=== PATIENT | male | born 1960 | race Caucasian/White ===

== ENCOUNTER 2021-10-14 13:42 | Emergency (ER) | payer OTHER, SELFPAY ==
[2021-10-14 13:42] VITALS: BP 150/105; PULSE 93; RESP 16; TEMP 36.4; O2SAT 96; BMI 39.4
--- NOTE | 2021-10-14 16:13 | CT_ITS ---
STUDY: CT ABDOMEN AND PELVIS WITH CONTRAST REASON FOR EXAM: Male, 60 years old. Abd pain RADIATION DOSAGE (If Supplied By Facility): CTDIvol = ( 23.96 ) mGy, DLP = ( 1935.99 ) mGycm TECHNIQUE: Transaxial images were obtained from the dome of the diaphragm to the symphysis pubis without oral contrast. IV 100mL Isovue-300 was administered. Sagittal and coronal images were reconstructed. Individualized dose optimization techniques were used for this CT. COMPARISON: 08/17/12. FINDINGS: The visualized lung bases are unremarkable. The visualized portions of the heart are within normal limits. Multiple liver cysts. Normal gallbladder and extrahepatic biliary system. Normal spleen. Normal pancreas. Normal bilateral adrenal glands. Normal right kidney. Normal left kidney. Normal visualized stomach. Normal small intestine. There is questionable wall thickening versus underdistention proximal colon. There is non-visualization of the appendix. Normal abdominal aorta. Normal inferior vena cava. Normal retroperitoneum. Normal urinary bladder. There are prostatic calcifications. Large fat-containing ventral hernia with some associated inflammation/fluid. Hernia neck measures 3.7 cm. Normal osseous structures. CT/Abdomen/Pelvis W IV Cont ONLY IMPRESSION: Large fat-containing ventral hernia. Correlate with physical exam to exclude incarceration. Cecal wall thickening versus underdistention may indicate colitis in the appropriate clinical setting. Electronically Signed: Jeff Olmos MD at 18:19 EDT ,
--- NOTE | 2021-10-14 16:15 | ED.VIS.GI ---
HPI HPI - GI History of Present Illness Chief Complaint: Abd Pain Informant: patient and spouse/S.O. Abdominal Pain/Flank Pain Onset: Days Context: Gradual Onset Timing: Intermittent Quality: Aching Location: Diffuse Current Severity: Gone Maximum Severity: Mild Worsened by: Nothing Relieved by: Nothing Nausea/Vomiting/Emesis GI Symptom: Negative for Nausea and Vomiting Diarrhea/Melena/Hematochezia GI Symptom: Positive for Diarrhea; Negative for Melena and Hematochezia Onset: Days Stool Quality: Positive for Loose and Watery Associated Symptoms Associated Symptoms: Negative for Dysuria, Frequency, Hematuria and Urgency Narrative Narrative: 60-year-old male history of BPH. He uses ibuprofen for pain and Flomax for his BPH. States since Tuesday has had some diffuse abdominal discomfort. He has a known umbilical hernia that he was instructed he needs to lose weight before they were repaired. He and his drink well water at home. She has had no symptoms. He had significant diarrhea Tuesday and Tuesday but seems to be resolving is only had several episodes a day the last couple days. Is never had C. difficile. He has been on no recent antibiotics. He denies any fever. He states in the past he had some type of colonoscopy done and he did several polypectomies. He was placed on antibiotic for some condition he cannot remember specifically what it was but he said he felt better has been fine since then. Prior similar symptoms: No Recent Illness/Hospitalization: No PFSH PFSH Medical History Umbilical hernia Home Medications tamsulosin 0.4 mg PO DAILY 10/14/21 [History Last Taken Unknown] Allergy/AdvReac Type Severity Reaction Status Date / Time No Known Allergies Allergy Verified 10/14/21 13:44 Surgical History History of bilateral knee replacement Social History Smoking Status: Never smoker ROS ROS ED ROS Narrative Abdominal pain and diarrhea. Review of Systems ROS Unobtainable: Denies due to encephalopathy Constitutional Constitutional ED: Denies fever(s) ENT ENT ED: Denies ear pain Cardiovascular Cardiovascular: Denies chest pain Respiratory/Chest Respiratory/Chest: Denies dyspnea Gastrointestinal Gastrointestinal: Reports abdominal pain and diarrhea; Denies constipation, melena, nausea or vomiting Genitourinary Genitourinary ED: Denies dysuria or hematuria Musculoskeletal Musculoskeletal: Denies myalgias Integumentary Denies rash Neurologic Neurologic: Denies headache(s) Psychiatric Psychiatric: Denies depression Endocrine Endocrinology: Denies polyuria Hematologic/Lymphatic Hematologic/Lymphatic: Denies easy bruising Allergic/Immunologic Allergic/Immunologic ED: Denies urticaria EXAM Physical Exam Narrative Exam Narrative: 6-year-old male no acute distress vital signs stable afebrile. HEENT exam unremarkable. Neck nontender. Lungs clear to auscultation bilaterally. Heart regular rate and rhythm no murmur rate about 90. Abdomen soft nondistended normal bowel sounds no peritoneal signs. No significant tenderness. Is a known umbilical hernia. It easily reduces. It is nontender. There is no signs of obstruction. He is moving all 4 extremities. Back nontender. Const Vital Signs: 10/14/21 13:42 10/14/21 16:44 10/14/21 18:14 Temperature 97.6 F L Temperature Source Temporal Pulse Rate 93 72 83 Respiratory Rate 16 19 H 15 Blood Pressure 150/105 H 132/89 H 139/76 H Blood Pressure Mean 120 103 97 Pulse Ox 96 97 98 Oxygen Delivery Method Room Air Room Air Room Air Positive well nourished, well developed and obese; Negative for cachectic, contractures or unkempt General Appearance ED: well developed and NAD; Negative for unkempt, cachectic, contractures or pallor Nutritional Appearance: obese; Negative for cachectic HEENT Reports moist mucous membranes normocephalic and atraumatic; Negative for trauma or tenderness Eyes PERRL and EOMs intact bilaterally General Eye ED: Negative for pale conjunctiva or scleral icterus Neck no lymphadenopathy, supple and no JVD General: Negative for tenderness Resp normal respiratory effort and clear to auscultation bilaterally Auscultation: Negative for rales, rhonchi or wheezes Cardio regular rate, regular rhythm, S1 normal heart sound, S2 normal heart sound and no murmurs GI non-tender, non-distended and no masses GI Narrative: Umbilical hernia. Nontender. Easily reduces. Auscultation: normoactive bowel sounds Palpation: soft; Negative for tender, guarding or rigid Back/Spine no CVA tenderness General Back: Negative for CVA tenderness Cervical Spine: Negative for cervical spine tenderness Extremity full ROM General Extremety ED: Negative for edema or tenderness General Extremity: Negative for edema Neuro moves all extremities Sensorium / Orientation: alert, oriented to person, oriented to place, oriented to time and stuporous; Negative for orientation impaired, confused or lethargic Motor Exam: strength 5/5 throughout Psych mental status grossly normal and thought process normal Appearance: Negative for unkempt Skin no wounds General Skin Exam: Negative for jaundice or pallor Lesions: no lesions Rashes: no rashes MDM MDM MDM Narrative Medical decision making narrative: 60-year-old with abdominal pain and diarrhea. Screening labs, CAT scan and C. difficile being obtained if he has a bowel movement here. His exam is benign. He does not need any medication at this time. He will be given IV fluids. Repeat exams at 6:00 and 6:45 PM. Patient doing well. We went over all his lab test and his CAT scan when it returned. He will be discharged home with outpatient follow-up with gastroenterology. General surgery follow-up for his hernia. Lab Data Attestation: I reviewed the patient's lab results. Lab results narrative: CBC shows white count of 4. H&H 15 and 46. Electrolytes show a gap of 5 normal BUN and creatinine. Normal liver enzymes. Normal glucose of 89. Lipase normal at 96. Labs: Laboratory Results - last 24 hr 10/14/21 10/14/21 16:30 16:30 WBC 4.4 RBC 5.02 Hgb 15.3 Hct 46.2 MCV 92.0 MCH 30.5 MCHC 33.1 RDW Std Deviation 44.3 H RDW Coeff of Karen 13.1 Plt Count 251 MPV 9.4 Immature Gran % (Auto) 0.900 Neut % (Auto) 42.2 L Lymph % (Auto) 39.2 [place] % (Auto) 12.5 H Eos % (Auto) 4.5 Baso % (Auto) 0.7 Absolute Neuts (auto) 1.9 L Absolute Lymphs (auto) 1.73 Nucleated RBC % 0 Sodium 141 Potassium 3.7 Chloride 107 Carbon Dioxide 29.0 Anion Gap 5 BUN 9 Creatinine 0.98 Estim Creat Clear Calc 93.20 Est GFR (MDRD) Af Amer 100 Est GFR (MDRD) Non-Af 83 BUN/Creatinine Ratio 9.2 L Glucose 89 Calcium 9.1 Total Bilirubin 0.70 AST 16 ALT 26 Alkaline Phosphatase 58 Total Protein 7.2 Albumin 3.3 Globulin 3.9 Albumin/Globulin Ratio 0.8 L Lipase 96 Radiography Diagnostic Testing: Clinical Impression(s) from Imaging Studies Abdomen/Pelvis CT 10/14/21 16:13 IMPRESSION: Large fat-containing ventral hernia. Correlate with physical exam to exclude incarceration. Cecal wall thickening versus underdistention may indicate colitis in the appropriate clinical setting. Electronically Signed: Jeff Olmos MD at 18:19 EDT , CAT scan consistent with colitis which is consistent with his diarrhea. Discharge Plan Triage Chief Complaint: Abd Pain ED Provider: Pascual Wall Dx/Rx/DC Orders Clinical Impression: Abdominal pain, Colitis, Diarrhea, Hernia, umbilical Instructions: Abdominal Pain, ED Diarrhea, Unknown Cause Prescriptions: No Action tamsulosin 0.4 mg capsule 0.4 mg PO DAILY RF: 0 Primary Care Provider: Gregorio Elmore Referrals: Gregorio Elmore MD [Primary Care Provider] - 1 Week if not improving Geraldo Ho DO [STAFF PHYSICIAN] - As soon as possible Activity Restrictions/Additional Instructions: Plenty of fluids and rest. Imodium for the diarrhea until resolves. Follow-up with waterway traffic checker if not improving. Disposition Disposition: Home, Self Care
[2021-10-14] MEDS: 0.9% Normal Saline 1,000 ML 1000 ML IV (16:33)
[2021-10-14 16:44] VITALS: BP 132/89; PULSE 72; RESP 19; O2SAT 97
[2021-10-14 16:54] LABS: Absolute Lymphocyte Count 1.73 X10^3/uL (0.83-4.51); Absolute Neutrophil Count 1.9 X10^3/uL (2.0-7.7); Basophil# 0.03 X10^3/uL; Basophil% 0.7 % (0-1); Eosinophils% 4.5 % (0-5); Hematocrit 46.2 % (40-54); Hemoglobin 15.3 g/dL (13.0-16.5); Lymphocyte # 1.73 X10^3/ul (0.83-4.51); Lymphocyte % 39.2 % (19-41); Mean Corp Hgb Conc 33.1 g/dL (32-36); Mean Corpuscular Hgb 30.5 pg (27.0-32.0); Mean Platelet Vol. 9.4 fl (6.2-12.0); Monocyte# 0.55 X10^3/uL; Monocyte% 12.5 % (0-10); NRBC Flagged by Analyzer 0 % (0-5); Neutrophil # 1.86 X10^3/uL (2.7-7.7); Neutrophil % 42.2 % (47-70); Platelet Count 251 K/mm3 (150-450); RBC Distribution Width CV 13.1 % (11.6-14.6); RBC Distribution Width SD 44.3 fl (35.1-43.9); Red Blood Count 5.02 M/mm3 (4.6-6.2); White Blood Count 4.4 K/mm3 (4.4-11.0)
[2021-10-14 17:11] LABS: ALB/GLOB Ratio 0.8 RATIO (0.9-2.4); AST(SGOT) 16 U/L (15-37); Alanine Aminotransfer ALT/SGPT 26 U/L (16-61); Albumin, Serum 3.3 g/dL (3.2-5.0); Alkaline Phosphatase 58 U/L (45-117); Anion Gap 5 (5-15); BUN 9 mg/dL (7-18); BUN/Creat Ratio 9.2 RATIO (10-20); Calcium,Total 9.1 mg/dL (8.5-10.1); Chloride 107 mmol/L (98-107); Creatinine, Serum 0.98 mg/dL (0.70-1.30); EST Glomerular Filtration Rate 83 mL/min (>60); Est Glom Filt Rate - Afr Amer 100 mL/min (>60); Globulin 3.9 g/dL (2.2-4.2); Glucose 89 mg/dL (74-106); Lipase 96 U/L (73-393); Potassium 3.7 mmol/L (3.5-5.1); Protein, Total 7.2 g/dL (6.4-8.2); Sodium Level 141 mmol/L (136-145)
[2021-10-14 18:14] VITALS: BP 139/76; PULSE 83; RESP 15; O2SAT 98
== END 2021-10-14 18:58 | disposition home or self-care (01) ==
PROVIDERS: Emergency Provider Emergency Medicine; PCP Family Medicine; Visit Provider Emergency Medicine
DX: K52.9 Noninfective gastroenteritis and colitis, unspecified (principal); K42.9 Umbilical hernia without obstruction or gangrene; N40.0 Benign prostatic hyperplasia without lower urinary tract symptoms; E66.9 Obesity, unspecified; Z68.39 Body mass index [BMI] 39.0-39.9, adult; Z79.899 Other long term (current) drug therapy
CPT/HCPCS: 74177; 80053; 83690; 85025; 96360; 96361; 99282; J7030; Q9967; A4216